=== PATIENT | male | born 1975 | race Caucasian/White ===

== ENCOUNTER 2017-02-07 02:43 | Day surgery (SDC) | payer OTHER ==
[~2017-02-07] VITALS: Ht 175.3 cm; Wt 95.3 kg
[~2017-02-07 02:43] MED LIST: ADA40I SUBQ; ALP1 PO; ALP25 PO; AMOX250S91 PO; AMPH20CA15 PO; AMPH25CA9 PO; ARIP10TA4 PO; AZIT500T47 PO; BUPR1PAT9 TD; BUTA1CAP4 PO; CELE-1 PO; CEP500 PO; CHOL200021 PO; CYC10 PO; DESV50TA9 PO; DIVA-1 PO; DOCU-416 PO; LAM100 PO; LOR5/325 PO; META800T18 PO; MODA100T39 PO; MODA200T39 PO; OXYC-865 PO; PAN40 PO; PER PO; PRE20 PO; RIS1 PO; TRA50 PO; TRAM200T PO
[2017-02-07] MEDS ORDERED: NORMOSOL R SOLN(*) 1000 ML BAG 1,000 ML IV PRN (09:30)
[2017-02-07] MEDS ORDERED: MIDAZOLAM 2 MG/2 ML VIAL IVP PRN (09:30)
[2017-02-07] MEDS ORDERED: LIDOCAINE/SOD BICARB 8.4% SYR ID ONE (09:30)
[2017-02-07] MEDS ORDERED: FAMOTIDINE 20 MG TAB PO ONE (09:30)
[2017-02-07 10:16] LABS: PLATELET COUNT, AUTOMATED 229 K/uL (150-450)
--- NOTE | 2017-02-07 10:30 | EKG ---
FACILITY: [facility] PATIENT NAME: HALLE GARAY : [id number] MR: [id number] V: [id number] EXAM DATE: ORDERING PHYSICIAN: ERNIE PERES TECHNOLOGIST: Test Reason : Blood Pressure : / mmHG Vent. Rate : 097 BPM Atrial Rate : 097 BPM P-R Int : 124 ms QRS Dur : 096 ms QT Int : 346 ms P-R-T Axes : 038 056 040 degrees QTc Int : 439 ms Normal sinus rhythm Normal ECG No previous ECGs available Confirmed by MARC POWERS ([id number]) on 02/08/2017 1:24:27 AM Referred By: Confirmed By:MARC POWERS
[2017-02-07] MEDS ORDERED: PROPOFOL EMUL(*) 10MG/ML 20 ML 20 ML ONE (10:47)
[2017-02-07] MEDS ORDERED: MIDAZOLAM 2 MG/2 ML VIAL ONE (10:47)
[2017-02-07] MEDS ORDERED: LIDOCAINE MPF 1% 5 ML VIAL ONE (10:47)
[2017-02-07] MEDS ORDERED: fentaNYL CITR 100 MCG/2 ML AMP ONE (10:47)
[2017-02-07] MEDS ORDERED: ONDANSETRON 4 MG/2 ML VIAL ONE (10:47)
[2017-02-07] MEDS ORDERED: DEXAMETHASONE SOD PHOS 10MG/ML ONE (10:47)
[2017-02-07 10:57] VITALS: BP 134/87
[2017-02-07] MEDS ORDERED: SUGAMMADEX SOD 200 MG/2 ML SDV ONE (11:30)
[2017-02-07] MEDS ORDERED: ROPIVACAINE 0.5% 20 ML VIAL ONE (12:07)
[2017-02-07] MEDS ORDERED: KETAMINE HCL 200 MG/20 ML MDV ONE (12:22)
[2017-02-07] MEDS ORDERED: OXYC-854 PO (13:15)
[2017-02-07] MEDS ORDERED: DOCU-416 PO (13:15)
--- NOTE | 2017-02-07 13:17 | Short(Outpt) Discharge Summary ---
Discharge Summary Reason for Hosp/Final Diag: (1) Nodule of neck Status: Chronic Hospital Course & Plan: Left neck mass removed without problems. Departure Discharge to: Home, Self Care Discharge Instructions Home Meds Active Scripts Docusate Sodium (COLACE) 100 Mg Capsule, 1 CAP PO BID, #30 CAPSULE 0 Refills Prov:ZAHIRA SALAZAR MD 02/07/17 Oxycodone Hcl/Acet 5/325 Mg (ENDOCET 5-325 TABLET) 1 Each Tablet, 1 TAB PO Q4H Y for PAIN, #20 TAB 0 Refills Prov:ZAHIRA SALAZAR MD 02/07/17 Reported Medications Amphet Asp/Amphet/D-Amphet (ADDERALL XR 25 MG CAPSULE) 25 Mg Cap.er.24h, 25 MG PO BID, CAP 01/23/17 Cholecalciferol (Vitamin D3) (VITAMIN D) 2,000 Unit Capsule, 2000 UNIT PO, CAPSULE 08/10/16 Butalb/Acetaminophen/Caffeine (FIORICET 50-300-40 MG CAPSULE) Unknown Strength Capsule, 1 EACH PO Q4H Y for HEADACHE, CAPSULE 02/17/16 Adalimumab (HUMIRA) 40 Mg/0.8 Ml/Kit Kit, 40 MG SUBQ [id number], KIT 03/24/13 Aripiprazole (ABILIFY) 10 Mg Tablet, 15 MG PO QDAY, TAB TAKE 1 TABLET BY MOUTH EVERY DAY 03/24/13 Follow up Referrals: General Surgery - 02/25/17 @ Surgery, General with Zahira Salazar Md You have a follow up appointment scheduled with Dr. Salazar on 02/25/17, at 9:45am. Diet: Regular Activity: As Tolerated Special Instructions: You may remove the white surgical dressing on 02/09/17, then you can shower. After showering, leave the incision open to air but leave the steristrips in place until they fall off on their own. Do not immerse the incision for 2 weeks. ZAHIRA SALAZAR MD Feb 07, 2017 13:17
--- NOTE | 2017-02-07 13:29 | Post Operative Progress Note ---
Post Operative Progress Note Date: Feb 07, 2017 Time: 13:19 Surgeon: Matteo Dictation number: [id number] on M*Modal Anesthesia: LMA by Dr. Rubio Pre-Op Diagnosis: Recurrent left neck nodule Post-Op Diagnosis: MEGA Findings: C/W benign lipoma Procedure(s): Excision of recurrent left neck mass Specimen Removed:(May be N/A): Left neck mass Complications: None Fluids: See anesthesia record Estimated Blood Loss: Minimal Date OP Note Dictated: Feb 07, 2017 Time OP Note Dictated: 13:20 ZAHIRA SALAZAR MD Feb 07, 2017 13:29
[2017-02-07 14:28] VITALS: BP 116/77
[2017-02-07 14:30] VITALS: BP 115/74
[2017-02-07 14:45] VITALS: BP 111/68
[2017-02-07] MEDS ORDERED: HYDR-385 PO (14:47)
[2017-02-07] MEDS ORDERED: APAP/HYDROCODONE 325/5 TAB ONE (14:50)
[2017-02-07 14:57] VITALS: BP 114/75
[2017-02-07 14:59] VITALS: BP 122/81
--- NOTE | 2017-02-09 10:14 | OPERATIVE REPORT 1 ---
EVENT DATE: February 07, 2017 SURGEON: Gurjit Felipe MD ANESTHESIOLOGIST: Michael Rubio MD ANESTHESIA: LMA PREOPERATIVE DIAGNOSIS Recurrent left neck mass. POSTOPERATIVE DIAGNOSIS Recurrent left neck mass. PROCEDURE PERFORMED Excision of recurrent left neck mass. ESTIMATED BLOOD LOSS Minimal. COMPLICATIONS None. CONDITION Stable. INDICATIONS This is a 42-year-old gentleman who ten months ago I removed a mass from his left neck in the office under local anesthetic which turned out to be a benign lipoma but it did not come out easily like a typical benign lipoma in that it seemed to have interdigitations that were adherent to surrounding tissue. I told him that I got out most of it but was not confident that I got it all and that if it recurred we would need to remove it in the operating room. He presented to my office a few weeks ago saying that it had come back and he was requesting to have it re-excised. DESCRIPTION OF PROCEDURE The patient was brought to the operating room and placed supine on the operating table. LMA anesthesia was administered, and his left neck was prepped and draped in a sterile fashion. A timeout was completed. I marked the skin overlying the palpable nodule and made an elliptical incision measuring about 3 cm long x 5 mm wide to encompass the previous scar and dissected through the dermis and then into the subdermal tissues. I hugged the dermis all the way out to the edges of the palpable mass, which I had marked in the preop area, and then dissected down deeper and actually pulled the fatty floor layer helper the underlying muscles. The sternocleidomastoid posterior portion was uncovered so there was no fat overlying the sternocleidomastoid muscle in the area of the incision. I also uncovered the prevertebral fascia covering the underlying scalene muscles so essentially there was no fat left at all in this space that I created through this incision. The specimen was passed off in one piece and sent to pathology. The wound was irrigated and dried, and I re -explored it to make sure there was nothing remaining behind and there was not. Again, the muscle was skeletonized as was the underlying precervical fascia and visible through this was the underlying scalene muscles but I did not go into the compartment containing the scalene muscles under the prevertebral fascia. Happy with how everything looked, and the wound was hemostatic, I closed the incision with interrupted 3-0 Vicryl deep dermal sutures and 4-0 Monocryl running subcuticular sutures. The skin was cleaned and dried and Steri -Strips were applied, followed by a sterile surgical dressing. The patient was awakened and extubated in the operating room and transported to the recovery room in stable condition, having tolerated the procedure without any apparent problems. JEEVAN
== END 2017-02-07 14:29 | disposition home or self-care (01) ==
LOC: OR 02:43
PROVIDERS: ATTEND Surgery
DX: R22.1 Localized swelling, mass and lump, neck (principal); I10 Essential (primary) hypertension
CPT/HCPCS: 21556; 36415; 85025; 88305; 93005; J1100; J2001; J2250; J2405; J2704; J2795; J3010; J3490

== ENCOUNTER → 2017-04-15 | Outpatient (CLI) | payer OTHER ==
[~2017-04-15] MED LIST changes: +HYDR-385 PO; +OXYC-854 PO
[2017-04-15 13:21] LABS: PLATELET COUNT, AUTOMATED 253 K/uL (150-450)
[2017-04-15 13:40] LABS: LDL CHOLESTEROL 76 mg/dl
== END ==
LOC: LAB 13:07
PROVIDERS: ATTEND Nurse Practitioner Family
DX: M45.9 Ankylosing spondylitis of unspecified sites in spine (principal); I10 Essential (primary) hypertension; E78.1 Pure hyperglyceridemia; Z79.899 Other long term (current) drug therapy
CPT/HCPCS: 36415; 82040; 82247; 82306; 82310; 82374; 82435; 82465; 82565; 82947; 83036; 83718; 84075; 84132; 84155; 84295; 84450; 84460; 84478; 84520; 85025

== ENCOUNTER → 2017-11-15 | Outpatient (CLI) | payer OTHER ==
[2017-11-15 08:22] LABS: PLATELET COUNT, AUTOMATED 219 K/uL (150-450)
== END ==
LOC: LAB 08:04
PROVIDERS: ATTEND Nurse Practitioner Family
DX: M45.9 Ankylosing spondylitis of unspecified sites in spine (principal); I10 Essential (primary) hypertension; R53.83 Other fatigue; R53.81 Other malaise; E78.1 Pure hyperglyceridemia; Z88.8 Allergy status to other drugs, medicaments and biological substances
CPT/HCPCS: 36415; 82040; 82247; 82306; 82310; 82374; 82435; 82465; 82565; 82947; 83036; 83718; 84075; 84132; 84155; 84295; 84450; 84460; 84478; 84520; 85025

== ENCOUNTER → 2017-12-17 | Outpatient (CLI) | payer OTHER ==
[~2017-12-17] MED LIST changes: +BREX0.25
== END ==
LOC: LAB 08:19
PROVIDERS: ATTEND Nurse Practitioner Family
DX: R73.01 Impaired fasting glucose (principal)
CPT/HCPCS: 36415; 82947; 84681; 86341

== ENCOUNTER → 2017-12-20 | Outpatient (CLI) | payer OTHER ==
[~2017-12-20] MED LIST changes: +CIPR-214 PO; +LISI5TAB25 PO; +METF-450 PO
== END ==
LOC: LAB 14:31
PROVIDERS: ATTEND Urology
DX: Z30.2 Encounter for sterilization (principal)
CPT/HCPCS: 88302

== ENCOUNTER → 2018-06-20 | Outpatient (CLI) | payer BC | LOC: LAB 08:10 | PROVIDERS: ATTEND Nurse Practitioner Psychiatric/Mental Health | DX: B34.9 Viral infection, unspecified (principal) | CPT/HCPCS: 83540; 86308 ==

== ENCOUNTER → 2018-06-20 | Outpatient (CLI) | payer BC ==
[2018-06-20 08:29] LABS: PLATELET COUNT, AUTOMATED 241 K/uL (150-450)
== END ==
LOC: LAB 08:08
PROVIDERS: ATTEND Nurse Practitioner Family
DX: R73.01 Impaired fasting glucose (principal); R53.81 Other malaise; E87.8 Other disorders of electrolyte and fluid balance, not elsewhere classified; E78.00 Pure hypercholesterolemia, unspecified; E55.9 Vitamin D deficiency, unspecified
CPT/HCPCS: 36415; 82040; 82247; 82306; 82310; 82374; 82435; 82465; 82565; 82947; 83036; 83718; 84075; 84132; 84155; 84295; 84450; 84460; 84478; 84520; 85025